=== PATIENT | male | born 1945 | race African-American/Black ===

== ENCOUNTER 2025-05-09 05:57 | Emergency (ER) | payer MEDICAID ==
--- OUTSIDE RECORDS SUMMARY | 2025-05-09 06:05 | XMS REPORT | Continuity of Care Document ---
Author Name Unknown Address [address] [facility] [address] [place] [address] [facility] Address [address] [facility] [address] [place] [address] Care Team Providers Care Graduate Rn Name Role Phone PCP, PATIENT DOES NOT HAVE A Primary Care Physic segundo Unavailable NASIM PEREZ Attending Clinician Unavailable BEATRIS LUNSFORD Attending Clinician Unavaila radha [facility] Attending Clinician Unavaila DANIELITO Shipley Attending Clinician Unav DANIELITO Farley Attending Clinician Unav MAYE Mendez Attending Clinician Unavailable [id number] Attending Clinician Unavailable Meena Pulliam Attending Clinician Unavaila radha [facility] Attending Clinician UnavailMIRZA Wolfe Attending Clinician Unavailable NT90 Attending Clinician Unavailable SHAAN TONG Attending Clinician Unavailable SHAAN TONG Attending Clinician Unavailable Pablo Blancas MD Attending Clinician [phone] Shaan Cueva Attending Clinician [phone] LAB90 Attending Clinician Unavailable MILI SCHULTZ Attending Clinician UnavailCATARINA Hyatt Attending Clinician Unav LISE Vargas Attending Clinician Unavailable Doctor Unassigned, [place] Attending Clinician Nelda Alvarez MD, Zeeshan KJerrodHJerrod Attending Clinician [phone] ZEESHAN ALVAREZHJerrod Attending Clinician UnavailELENA Gomez Attending Clinician Unavailab Elena Donnelly DO Attending Clinician [phone] SABRINA BAPTISTE Attending Clinician Unavailable Sabrina Daniels Attending Clinician [phone] ANUPAMA RUBIO Attending Clinician Unavailable Anupama Rubio NP Attending Clinician [phone] MITCHELL KWON Attending Clinician Unavail able Vaccine, [facility] Family Medicine Attending Clinician Unavailable Mitchell Kwon DO Attending Clinician [phone] ROBYN WOOD Attending Clinician Unavailable Robyn Wood MD Attending Clinician + [phone] , [facility] Surg Spec Procedure Attending Clinician Unavailable Nurse, [facility] Pob Immunization Attending Clinician Unavailable Antonia Zimmerman MD Attending Clinician + [phone] ANTONIA ZIMMERMAN Attending Clinician Unavaila ROGE Aguilar Attending Clinician Unavailable Roge Salas Attending Clinician [phone] KOSTA SIMS Attending Clinician Unavailable AneChristine Jackson Attending Clinician [phone] Lab, [facility] Fam Pob I Attending Clinician Unavailab CHRISTINE Carter Attending Clinician Unavailable Pob, [facility] Lab Main Attending Clinician UnavailJim Longoria MD Attending Clinician [phone] Visit, [facility] Nurse Attending Clinician Unavailable Phoenix Chambers MD Attending Clinician [phone] Guilherme HAYES Attending Clinician Unavailable Kushal Diaz MD Attending Clinician [phone] Danielito Henry Attending Clinician [phone] DANIELITO REHMAN Attending Clinician Unavailable [facility] Attending Clinician Unavailable KUSHAL DIAZ Attending Clinician Unavail able Jesse RN, Izzy Mayberry Attending Clinician Unavail able Steven France MD Attending Clinician [phone] STEVEN FRANCE Attending Clinician Unavailable [facility], [facility] Cardio Fac Attending Clinician Unavail able 1, [facility] Cardio Fac Room Attending Clinician UnaTrista Lomeli MD Attending Clinician [phone] TRISTA CAMP Attending Clinician Unavailable PHIL MA Attending Clinician Unavailable DANIELITO CONTI Admitting Clinician Unav SHAAN Reece Admitting Clinician Unavailable ZEESHAN ALVAREZ Admitting Clinician UnavailANUPAMA Renee Admitting Clinician Unavailable Guilherme HAYES Admitting Clinician Unavailable DANIELITO REHMAN Admitting Clinician Unavailable Steven France MD Admitting Clinician STEVEN FRANCE Admitting Clinician Unavailable PHIL MA Admitting Clinician Unavailable Payers Payer Name Policy Type Policy Number Effective Date Expirati on Date Source [facility] [id number] 00:00:00 [employer] [id number] 2024 00:00:00 Problems Condition Name Condition Details Condition Category Status Onset Date Resolution Date Last Treatment Date Treating Clinician Comments Source Calcified granuloma of lung (multi HCC) - seen on CXR 08/14/19 (Care Everywhere ) Calcified granuloma of lung (multi HCC) - seen on CXR 08/14/19 (Care Everywhere ) Disease Active 9-19 00:00: 00 Dena Paezold - Externa l Atheroscle rosis of aorta (CMS-HCC) - seen on CXR 02/13/22 Atheroscle rosis of aorta (CMS-HCC) - seen on CXR 02/13/22 Disease Active 9-18 00:00: 00 Dena Estrella - Externa l Statin intoleranc e Statin intoleranc e Disease Active 8-25 00:00: 00 Dena Estrella - Externa l Mixed hyperlipid emia Mixed hyperlipid emia Disease Active - 00:00: 00 Dena Estrella - Externa l Well adult exam Well adult exam Disease Active 12-17 00:00: 00 Dena Estrella - Externa l Pure hyperchole sterolemia Pure hyperchole sterolemia Disease Active - 00:00: 00 Dena Estrella - Externa l Hypertensi on Hypertensi on Disease Active 4- 00:00: 00 Dena Estrella - Externa l Palpitatio ns Palpitatio ns Disease Active 11-17 00:00: 00 Dena mayberry History of elevated PSA History of elevated PSA Disease Active 11-17 00:00: 00 Dena mayberry RLQ abdominal pain RLQ abdominal pain Disease Active 08-23 00:00: 00 [facility] Abnormal CT scan, pelvis Abnormal CT scan, pelvis Disease Active 08-23 00:00: 00 [facility] Atypical chest pain Atypical chest pain Disease Active 08-14 00:00: 00 [facility] PAC (premature atrial contractio n) PAC (premature atrial contractio n) Disease Active 08-14 00:00: 00 [facility] Increased prostate specific antigen (PSA) velocity Increased prostate specific antigen (PSA) velocity Disease Active 2018-07 00:00: 00 [facility] Abnormal liver function tests Abnormal liver function tests Disease Active 2018-07 00:00: 00 [facility] Renal dysfunctio n Renal dysfunctio n Disease Active 2018-07 00:00: 00 [facility] Hyperkalem ia Hyperkalem ia Disease Active 2018-07 00:00: 00 [facility] Granulocyt openia Granulocyt openia Disease Active 2018-07 00:00: 00 [facility] Liver cyst Liver cyst Disease Active 2018-07 00:00: 00 [facility] Renal cyst Renal cyst Disease Active 2018-07 00:00: 00 [facility] RUQ abdominal pain RUQ abdominal pain Disease Active 2018-07 00:00: 00 [facility] Irregular heart beat Irregular heart beat Disease Active 2018-07 00:00: 00 [facility] Elevated PSA Elevated PSA Disease Active 09-07 00:00: 00 [facility] Leukopenia , unspecifie d type Leukopenia , unspecifie d type Disease Active 09-07 00:00: 00 [facility] Essential hypertensi on Essential hypertensi on Disease Active [facility] Hyperlipid emia Hyperlipid emia Disease Active [facility] Anemia, unspecifie d type Anemia, unspecifie d type Disease Resolve d 09-07 00:00: 00 2019-06-11 00:00:00 2019-06-11 01:36:07 [facility] Malaise Malaise Disease Resolve d 09-07 00:00: 00 2019-06-11 00:00:00 2019-06-11 01:36:26 [facility] Benign prostatic hyperplasi a without lower urinary tract symptoms Benign prostatic hyperplasi a without lower urinary tract symptoms Disease Resolve d 2019-06-11 00:00:00 2019-06-11 01:36:16 [facility] Allergies, Adverse Reactions, Alerts Allergy Name Allergy Type Status Severity Reaction(s) Onset Date Inactive Date Treating Clinician Comments Source Losartan Propensi ty to adverse reaction s Active Other 10-01 00:00: 00 Dizziness , balance issues Dena Estrella - Externa l NO KNOWN ALLERGIE S Drug Class Active [facility] Social History Social Habit Start Date Stop Date Quantity Comments Source History of Occupation Dena Estrella - External History of tobacco use Cigarette Smoker Dena Brantley External Gender identity [facility] Sexual orientation [facility] Tobacco use and exposure 2024-04-17 00:00:00 2024-04-17 00:00:00 Smokeless tobacco non-user Dena Estrella - Vel Cigarettes smoked current (pack per day) - Reported 2024-04-17 00:00:00 2024-04-17 00:00:00 Dena Estrella - External Cigarette pack-years 2024-04-17 00:00:00 2024-04-17 00:00:00 Dena Estrella - External Alcohol intake 2023-03-18 00:00:00 2023-03-18 00:00:00 Ex-drinker (finding) Dena Estrella - External Education 2022-11-17 00:00:00 2022-11-17 00:00:00 13 Dena Estrella - External Alcohol Comment 2022-11-17 00:00:00 2022-11-17 00:00:00 Quit in the 1970s Dena Estrella - External Tobacco Comment 2022-11-16 00:00:00 2022-11-16 00:00:00 Stopped smoking 1977 Dena Estrella - External Sex 2022-06-30 11:33:56 2022-06-30 11:33:56 Male (finding) Dena Christinalos - External Exposure to SARS-CoV-2 (event) 2022-06-08 00:00:00 2022-06-18 09:42:00 Not sure [facility] History of Social function 2022-02-19 00:00:00 2022-02-19 00:00:00 [facility] Alcoholic beverage intake 2019-06-05 00:00:00 2019-06-05 00:00:00 0 /d [facility] Sex assigned at 1945 00:00:00 1945 00:00:00 Dena Estrella - External Smoking Status Start Date Stop Date Source Ex-smoker 2024-04-17 00:00:00 2024-04-17 00:00:00 Guilherme Estrella - External Medications Ordered Medication Name Filled Medication Name Start Date Stop Date Current Medication? Ordering Clinician Indication Dosage Frequency Signature (SIG) Comments Components Source Amlodipine Besylate (Norvasc) 10 MG oral Tablet 10-01 00:00: 00 Yes [id number] 10mg QD Take 1 tablet (10 mg total) by mouth daily. Dena mayberry Amlodipine Besylate (Norvasc) 5 MG oral Tablet 10-01 00:00: 00 10-01 00:00 :00 No [id number] 5mg QD Take 1 tablet (5 mg total) by mouth daily. Dena mayberry Losartan Potassium 25 MG oral Tablet 09-26 00:00: 00 10-01 00:00 :00 No [id number] 25mg QD Take 1 tablet (25 mg total) by mouth daily. Dena mayberry Clonidine HCl (CATAPRES) 0.1 MG oral Tablet 09-20 11:03: 09-20 00:00 :00 No TAKE 1 TABLET BY MOUTH TWICE DAILY NEEDED FOR BLOOD PREESSURE GREATER THAN 160/100 Dena mayberry Losartan Potassium 25 MG oral Tablet 09-20 00:00: 00 Yes [id number] 25mg QD Take 1 tablet (25 mg total) by mouth daily. Dena Adames Natural Products (Beta-Sitos terol Plant Sterols) oral Capsule 08-10 16:13: 08-10 00:00 :00 No Take by mouth. Dena mayberry Aspirin (Aspirin 81) 81 MG oral Tablet Delayed Response 08-10 16:13: 08-10 00:00 :00 No [id number] 81mg QD Take 1 tablet (81 mg total) by mouth daily. Dena mayberry Losartan Potassium 25 MG oral Tablet 08-10 00:00: 00 09-20 00:00 :00 No [id number] 25mg QD Take 1 tablet (25 mg total) by mouth daily. Dena mayberry hydralAZINE (APRESOLINE ) injection 10 mg 08-07 21:00: 00 08-07 23:00 :00 No 10mg 10 mg, Slow IV Push, ONCE, 1 dose, On Tue08/07/24 at 1500, KHOI [facility] cloNIDine 0.1 mg tablet 08-07 00:00: 00 08-07 00:00 :00 No [id number] .1mg Take 1 tablet by mouth 2 (two) times daily as needed for Other (blood pressure > 160/100). [facility] Aspirin (Aspirin 81) 81 MG oral Tablet Delayed Response 04-17 09:03: 58 Yes [id number] 81mg QD Take 1 tablet (81 mg total) by mouth daily. Dena Adames Natural Products (Beta-Sitos terol Plant Sterols) oral Capsule 04-17 08:11: 46 Yes Take by mouth. Dena mayberry Amlodipine Besylate 10 MG oral Tablet 2024-0 9-24 00:00: 00 09-20 00:00 :00 No [id number] 10mg QD Take 1 tablet (10 mg total) by mouth daily. Dena mayberry Amlodipine Besylate 10 MG oral Tablet 7-13 00:00: 00 04-17 00:00 :00 No [id number] 10mg QD Take 1 tablet by mouth once daily Dena mayberry Misc Natural Products (Beta-Sitos terol Plant Sterols) oral Capsule 03-18 07:52: 44 Yes Take by mouth. Dena mayberry [place] 1000 MG oral Capsule 03-18 07:52: 44 03-18 00:00 :00 No 1{capsu le} Take 1 capsule by mouth daily Dena mayberry Pitavastati n Calcium 1 MG oral Tablet 03-18 00:00: 00 04-17 00:00 :00 No [id number] 1{tbl} QD Take 1 tablet by mouth nightly. Dena mayberry Atorvastati n Calcium (Lipitor) 10 MG oral Tablet 12-17 00:00: 00 03-18 00:00 :00 No [id number] 10mg Take 1 tablet (10 mg total) by mouth daily Dena mayberry [place] 1000 MG oral Capsule 11-17 08:23: 20 Yes 1{capsu le} Take 1 capsule by mouth daily Dena mayberry Amlodipine Besylate 10 MG oral Tablet - 00:00: 00 Yes [id number] 10mg Take 1 tablet (10 mg total) by mouth daily Dena mayberry Amlodipine Besylate (NORVASC) 5 MG oral Tablet 2-20 00:00: 00 11-17 00:00 :00 No 5mg Take 1 tablet (5 mg total) by mouth 2 times daily Dena mayberry AMLODIPINE 5 mg tablet 5-16 00:00: 00 09-13 00:00 :00 No [id number] TAKE 1 TABLET BY MOUTH TWICE DAILY [facility] GREEN TEA EXTRACT ORAL 04-17 10:00: 36 Yes Take by mouth daily. [facility] MEN'S MULTI-VITAM IN ORAL 04-17 09:49: 47 Yes 1{capsu le} Take 1 capsule by mouth 2 (two) times daily. [facility] Immunizations Ordered Immunization Name Filled Immunization Name Date Status Comments Source SARS-COV-2 COVID-19 PFIZER RENA-SUCROSE VACCINE (GOODEN TOP) 2022-01-28 00:00:00 Completed [facility] SARS-COV-2 COVID-19 PFIZER RENA-SUCROSE VACCINE (GOODEN TOP) 2022-01-28 00:00:00 Completed [facility] SARS-COV-2 COVID-19 PFIZER RENA-SUCROSE VACCINE (GOODEN TOP) 2022-01-28 00:00:00 Completed [facility] SARS-COV-2 COVID-19 PFIZER RENA-SUCROSE VACCINE (GOODEN TOP) 2022-01-28 00:00:00 Completed [facility] SARS-COV-2 COVID-19 PFIZER RENA-SUCROSE VACCINE (GOODEN TOP) 2022-01-28 00:00:00 Completed [facility] SARS-COV-2 COVID-19 PFIZER RENA-SUCROSE VACCINE (GOODEN TOP) 2022-01-28 00:00:00 Completed [facility] SARS-COV-2 COVID-19 PFIZER RENA-SUCROSE VACCINE (GOODEN TOP) 2022-01-28 00:00:00 Completed [facility] SARS-COV-2 COVID-19 PFIZER RENA-SUCROSE VACCINE (GOODEN TOP) 2022-01-28 00:00:00 Completed [facility] SARS-COV-2 COVID-19 PFIZER RENA-SUCROSE VACCINE (GOODEN TOP) 2022-01-28 00:00:00 Completed [facility] SARS-COV-2 COVID-19 PFIZER RENA-SUCROSE VACCINE (GOODEN TOP) 2022-01-28 00:00:00 Completed SARS-COV-2 COVID-19 PFIZER VACCINE 2021-05-13 00:00:00 Completed [facility] SARS-COV-2 COVID-19 PFIZER VACCINE 2021-05-13 00:00:00 Completed [facility] SARS-COV-2 COVID-19 PFIZER VACCINE 2021-05-13 00:00:00 Completed [facility] SARS-COV-2 COVID-19 PFIZER VACCINE 2021-05-13 00:00:00 Completed [facility] SARS-COV-2 COVID-19 PFIZER VACCINE 2021-05-13 00:00:00 Completed [facility] SARS-COV-2 COVID-19 PFIZER VACCINE 2021-05-13 00:00:00 Completed [facility] SARS-COV-2 COVID-19 PFIZER VACCINE 2021-05-13 00:00:00 Completed [facility] SARS-COV-2 COVID-19 PFIZER VACCINE 2021-05-13 00:00:00 Completed [facility] SARS-COV-2 COVID-19 PFIZER VACCINE 2021-05-13 00:00:00 Completed [facility] SARS-COV-2 COVID-19 PFIZER VACCINE 2021-05-13 00:00:00 Completed [facility] SARS-COV-2 COVID-19 PFIZER VACCINE 2020-09-03 00:00:00 Completed [facility] SARS-COV-2 COVID-19 PFIZER VACCINE 2020-09-03 00:00:00 Completed [facility] SARS-COV-2 COVID-19 PFIZER VACCINE 2020-09-03 00:00:00 Completed [facility] SARS-COV-2 COVID-19 PFIZER VACCINE 2020-09-03 00:00:00 Completed [facility] SARS-COV-2 COVID-19 PFIZER VACCINE 2020-09-03 00:00:00 Completed [facility] SARS-COV-2 COVID-19 PFIZER VACCINE 2020-09-03 00:00:00 Completed [facility] SARS-COV-2 COVID-19 PFIZER VACCINE 2020-09-03 00:00:00 Completed [facility] SARS-COV-2 COVID-19 PFIZER VACCINE 2020-09-03 00:00:00 Completed [facility] SARS-COV-2 COVID-19 PFIZER VACCINE 2020-09-03 00:00:00 Completed [facility] SARS-COV-2 COVID-19 PFIZER VACCINE 2020-09-03 00:00:00 Completed SARS-COV-2 COVID-19 PFIZER VACCINE 2020-08-13 00:00:00 Completed [facility] SARS-COV-2 COVID-19 PFIZER VACCINE 2020-08-13 00:00:00 Completed [facility] SARS-COV-2 COVID-19 PFIZER VACCINE 2020-08-13 00:00:00 Completed [facility] SARS-COV-2 COVID-19 PFIZER VACCINE 2020-08-13 00:00:00 Completed [facility] SARS-COV-2 COVID-19 PFIZER VACCINE 2020-08-13 00:00:00 Completed [facility] SARS-COV-2 COVID-19 PFIZER VACCINE 2020-08-13 00:00:00 Completed [facility] SARS-COV-2 COVID-19 PFIZER VACCINE 2020-08-13 00:00:00 Completed [facility] SARS-COV-2 COVID-19 PFIZER VACCINE 2020-08-13 00:00:00 Completed [facility] SARS-COV-2 COVID-19 PFIZER VACCINE 2020-08-13 00:00:00 Completed [facility] SARS-COV-2 COVID-19 PFIZER VACCINE 2020-08-13 00:00:00 Completed [facility] Influenza Virus Vaccine, High Dose, Age 65 And Up 2020-05-25 00:00:00 Completed Dena Seybold - External Influenza Virus Vaccine, High Dose, Age 65 And Up 2020-05-25 00:00:00 Completed Dena Seybold - External Influenza Virus Vaccine, High Dose, Age 65 And Up 2020-05-25 00:00:00 Completed Dena Seybold - External Influenza High Dose 2020-05-25 00:00:00 Completed [facility] Influenza High Dose 2020-05-25 00:00:00 Completed [facility] Influenza High Dose 2020-05-25 00:00:00 Completed [facility] Influenza High Dose 2020-05-25 00:00:00 Completed [facility] Influenza High Dose 2020-05-25 00:00:00 Completed [facility] Influenza High Dose 2020-05-25 00:00:00 Completed [facility] Influenza High Dose 2020-05-25 00:00:00 Completed [facility] Influenza High Dose 2020-05-25 00:00:00 Completed [facility] Influenza High Dose 2020-05-25 00:00:00 Completed [facility] Influenza, High-Dose, Trivalent, PF (FLUZONE) 2020-05-25 00:00:00 Completed [facility] Influenza Virus Vaccine, High Dose, Age 65 And Up 2019-04-25 00:00:00 Completed Dena Seybold - External Influenza Virus Vaccine, High Dose, Age 65 And Up 2019-04-25 00:00:00 Completed Dena Seybold - External Influenza Virus Vaccine, High Dose, Age 65 And Up 2019-04-25 00:00:00 Completed Dena Christinaybold - External Influenza High Dose 2019-04-25 00:00:00 Completed [facility] Influenza High Dose 2019-04-25 00:00:00 Completed [facility] Influenza High Dose 2019-04-25 00:00:00 Completed [facility] Influenza High Dose 2019-04-25 00:00:00 Completed [facility] Influenza High Dose 2019-04-25 00:00:00 Completed [facility] Influenza High Dose 2019-04-25 00:00:00 Completed [facility] Influenza High Dose 2019-04-25 00:00:00 Completed [facility] Influenza High Dose 2019-04-25 00:00:00 Completed [facility] Influenza High Dose 2019-04-25 00:00:00 Completed [facility] Influenza, High-Dose, Trivalent, PF (FLUZONE) 2019-04-25 00:00:00 Completed [facility] Influenza Virus Vaccine, High Dose, Age 65 And Up 2015-04-30 00:00:00 Completed Dena Seybold - External Influenza Virus Vaccine, High Dose, Age 65 And Up 2015-04-30 00:00:00 Completed Dena Seybold - External Influenza Virus Vaccine, High Dose, Age 65 And Up 2015-04-30 00:00:00 Completed Dena Seybold - External Influenza Virus Vaccine, High Dose, Age 65 And Up 2014-05-24 00:00:00 Completed Dena Seybold - External Influenza Virus Vaccine, High Dose, Age 65 And Up 2014-05-24 00:00:00 Completed Dena Seybold - External Influenza Virus Vaccine, High Dose, Age 65 And Up 2014-05-24 00:00:00 Completed Dena Seybold - External Influenza Virus Vaccine, High Dose, Age 65 And Up 2013-06-01 00:00:00 Completed Dena Seybold - External Td(adult) unspecified formulation 2013-06-01 00:00:00 Completed Dena Seybold - External Influenza Virus Vaccine, High Dose, Age 65 And Up 2013-06-01 00:00:00 Completed Dena Seybold - External Td(adult) unspecified formulation 2013-06-01 00:00:00 Completed Dena Seybold - External Influenza Virus Vaccine, High Dose, Age 65 And Up 2013-06-01 00:00:00 Completed Dena Seybold - External Td(adult) unspecified formulation 2013-06-01 00:00:00 Completed Dena Seybold - External Shingles SQ (Zostavax) 2012-12-01 00:00:00 Completed Dena Seybold - External Shingles SQ (Zostavax) 2012-12-01 00:00:00 Completed Dena Seybold - External Shingles SQ (Zostavax) 2012-12-01 00:00:00 Completed Dena Seybold - External Influenza Virus Vaccine, Unspecified Formulation 2012-05-10 00:00:00 Completed Dena Seybold - External Influenza Virus Vaccine, Unspecified Formulation 2012-05-10 00:00:00 Completed Dena Seybold - External Influenza Virus Vaccine, Unspecified Formulation 2012-05-10 00:00:00 Completed Dena Seybold - External Influenza Virus Vaccine, Unspecified Formulation 2011-05-27 00:00:00 Completed Dena Seybold - External Influenza Virus Vaccine, Unspecified Formulation 2011-05-27 00:00:00 Completed Dena Seybold - External Influenza Virus Vaccine, Unspecified Formulation 2011-05-27 00:00:00 Completed Dena Seybold - External Influenza Virus Vaccine, Unspecified Formulation 2010-06-30 00:00:00 Completed Dena Seybold - External Influenza Virus Vaccine, Unspecified Formulation 2010-06-30 00:00:00 Completed Dena Seybold - External Influenza Virus Vaccine, Unspecified Formulation 2010-06-30 00:00:00 Completed Dena Seybold - External [id number] 2009-06-26 00:00:00 Completed Dnea Seybold - External [id number] 2009-06-26 00:00:00 Completed Dena Seybold - External [id number] 2009-06-26 00:00:00 Completed Dena Seybold - External Influenza Virus Vaccine, Unspecified Formulation 2009-05-27 00:00:00 Completed Dena Seybold - External Influenza Virus Vaccine, Unspecified Formulation 2009-05-27 00:00:00 Completed Dena Seybold - External Influenza Virus Vaccine, Unspecified Formulation 2009-05-27 00:00:00 Completed Dena Seybold - External pneumococcal, unspecified formulation 2009-02-11 00:00:00 Completed Dena Seybold - External pneumococcal, unspecified formulation 2009-02-11 00:00:00 Completed Dena Seybold - External pneumococcal, unspecified formulation 2009-02-11 00:00:00 Completed Dena Seybold - External Influenza Virus Vaccine, Unspecified Formulation 2008-07-16 00:00:00 Completed Dena Seybold - External Influenza Virus Vaccine, Unspecified Formulation 2008-07-16 00:00:00 Completed Dena Seybold - External Influenza Virus Vaccine, Unspecified Formulation 2008-07-16 00:00:00 Completed Dena Seybold - External Influenza Virus Vaccine, Unspecified Formulation 2007-05-15 00:00:00 Completed Dena Seybold - External Influenza Virus Vaccine, Unspecified Formulation 2007-05-15 00:00:00 Completed Dena Seybold - External Influenza Virus Vaccine, Unspecified Formulation 2007-05-15 00:00:00 Completed Dena Seybold - External Influenza Virus Vaccine, Unspecified Formulation 2005-06-08 00:00:00 Completed Dena Seybold - External Influenza Virus Vaccine, Unspecified Formulation 2005-06-08 00:00:00 Completed Dena Seybold - External Influenza Virus Vaccine, Unspecified Formulation 2005-06-08 00:00:00 Completed Dena Seybold - External Influenza Virus Vaccine, Unspecified Formulation 2004-09-04 00:00:00 Completed Dena Seybold - External Influenza Virus Vaccine, Unspecified Formulation 2004-09-04 00:00:00 Completed Dena Seybold - External Influenza Virus Vaccine, Unspecified Formulation 2004-09-04 00:00:00 Completed Dena Seybold - External Influenza Virus Vaccine, Unspecified Formulation 2003-05-28 00:00:00 Completed Dena Seybold - External Influenza Virus Vaccine, Unspecified Formulation 2003-05-28 00:00:00 Completed Dena Seybold - External Influenza Virus Vaccine, Unspecified Formulation 2003-05-28 00:00:00 Completed Dena Seybold - External Influenza Virus Vaccine, Unspecified Formulation 2002-04-17 00:00:00 Completed Dena Seybold - External Influenza Virus Vaccine, Unspecified Formulation 2002-04-17 00:00:00 Completed Dena Seybold - External Influenza Virus Vaccine, Unspecified Formulation 2002-04-17 00:00:00 Completed Dena Seybold - External Influenza Virus Vaccine, Unspecified Formulation 2001-04-24 00:00:00 Completed Dena Seybold - External Influenza Virus Vaccine, Unspecified Formulation 2001-04-24 00:00:00 Completed Dena Seybold - External Influenza Virus Vaccine, Unspecified Formulation 2001-04-24 00:00:00 Completed Dena Seybold - External Influenza Virus Vaccine, Whole Virus 1999-07-25 00:00:00 Completed Dena Seybold - External Influenza Virus Vaccine, Whole Virus 1999-07-25 00:00:00 Completed Dena Seybold - External Influenza Virus Vaccine, Whole Virus 1999-07-25 00:00:00 Completed Dena Seybold - External Td(adult) unspecified formulation 1998-12-03 00:00:00 Completed Dena Seybold - External Td(adult) unspecified formulation 1998-12-03 00:00:00 Completed Dena Seybold - External Td(adult) unspecified formulation 1998-12-03 00:00:00 Completed Dena Seybold - External Influenza Virus Vaccine, Unspecified Formulation Unknown Completed Dena Seybold - External Influenza Virus Vaccine, High Dose, Age 65 And Up Unknown Completed Dena Seybold - External Influenza Virus Vaccine, Whole Virus Unknown Completed Dena Seybold - External [id number] Unknown Completed Dena Christinay bold - External pneumococcal, unspecified formulation Unknown Completed Dena Christinaybold - External Shingles SQ (Zostavax) Unknown Completed Dena Seybold - External Td(adult) unspecified formulation Unknown Completed Dena Seybold - External FLUAD TRIVALENT PF Influenza Vaccine, Adjuvanted, Preserve Unknown Completed Dena Seybold - External Influenza Virus Vaccine, Unspecified Formulation Unknown Completed Dena Seybold - External Influenza Virus Vaccine, High Dose, Age 65 And Up Unknown Completed Dena Seybold - External Influenza Virus Vaccine, Whole Virus Unknown Completed Dena Seybold - External [id number] Unknown Completed Dena Sey bold - External pneumococcal, unspecified formulation Unknown Completed Dena Seybold - External Shingles SQ (Zostavax) Unknown Completed Dena Seybold - External Td(adult) unspecified formulation Unknown Completed Dena Seybold - External FLUAD TRIVALENT PF Influenza Vaccine, Adjuvanted, Preserve Unknown Completed Dena Seybold - External Influenza Virus Vaccine, Unspecified Formulation Unknown Completed Dena Seybold - External Influenza Virus Vaccine, High Dose, Age 65 And Up Unknown Completed Dena Seybold - External Influenza Virus Vaccine, Whole Virus Unknown Completed Dena Seybold - External [id number] Unknown Completed Dena Sey bold - External pneumococcal, unspecified formulation Unknown Completed Dena Seybold - External Shingles SQ (Zostavax) Unknown Completed Dena Seybold - External Td(adult) unspecified formulation Unknown Completed Dena Seybold - External FLUAD TRIVALENT PF Influenza Vaccine, Adjuvanted, Preserve Unknown Completed Dena Seybold - External Influenza Virus Vaccine, Unspecified Formulation Unknown Completed Dena Seybold - External Influenza Virus Vaccine, High Dose, Age 65 And Up Unknown Completed Dena Seybold - External Influenza Virus Vaccine, Whole Virus Unknown Completed Dena Seybold - External [id number] Unknown Completed Dena Sey bold - External pneumococcal, unspecified formulation Unknown Completed Dena Seybold - External Shingles SQ (Zostavax) Unknown Completed Dena Seybold - External Td(adult) unspecified formulation Unknown Completed Dena Seybold - External FLUAD TRIVALENT PF Influenza Vaccine, Adjuvanted, Preserve Unknown Completed Dena Seybold - External Influenza Virus Vaccine, Unspecified Formulation Unknown Completed Dena Seybold - External Influenza Virus Vaccine, High Dose, Age 65 And Up Unknown Completed Dena Seybold - External Influenza Virus Vaccine, Whole Virus Unknown Completed Dena Seybold - External [id number] Unknown Completed Dena Sey bold - External pneumococcal, unspecified formulation Unknown Completed Dena Seybold - External Shingles SQ (Zostavax) Unknown Completed Dena Christinaybold - External Td(adult) unspecified formulation Unknown Completed Dena Christinaybold - External FLUAD TRIVALENT PF Influenza Vaccine, Adjuvanted, Preserve Unknown Completed Dena Paezold - External Influenza High Dose Unknown Completed [facility] SARS-COV-2 COVID-19 PFIZER VACCINE Unknown Completed [facility] SARS-COV-2 COVID-19 PFIZER RENA-SUCROSE VACCINE (GOODEN TOP) Unknown Completed [facility] Vital Signs Vital Name Observation Time Observation Value Comments S ource Systolic blood pressure 2024-11-16 13:49:00 132 mm[Hg] Dena Seybo ld - External Diastolic blood pressure 2024-11-16 13:49:00 64 mm[Hg] Dena Seybo ld - External Heart rate 2024-11-16 13:49:00 84 /min Kelse y Seybold - External Body temperature 2024-11-16 13:49:00 36 Philomena Dena Seybold - External Respiratory rate 2024-11-16 13:49:00 16 /min Dena Seybold - External Body height 2024-11-16 13:49:00 182.9 cm Ese ey Seybold - External Body weight 2024-11-16 13:49:00 78.563 kg Ese ey Seybold - External BMI 2024-11-16 13:49:00 23.49 kg/m2 Ese ey Seybold - External Oxygen saturation in Arterial blood by Pulse oximetry 2024-11-16 13:49:00 97 /min Dena ybo ld - External Systolic blood pressure 2024-10-01 13:17:00 136 mm[Hg] Dena Seybo ld - External Diastolic blood pressure 2024-10-01 13:17:00 72 mm[Hg] Dena Seybo ld - External Heart rate 2024-10-01 13:17:00 71 /min Kelse y Seybold - External Body temperature 2024-10-01 13:17:00 36.39 Philomena Dena Seybold - External Respiratory rate 2024-10-01 13:17:00 16 /min Dena Seybold - External Body height 2024-10-01 13:17:00 182.9 cm Ese ey Seybold - External Body weight 2024-10-01 13:17:00 77.111 kg Ese ey Seybold - External BMI 2024-10-01 13:17:00 23.06 kg/m2 Ese ey Seybold - External Oxygen saturation in Arterial blood by Pulse oximetry 2024-10-01 13:17:00 97 /min Dena Seybo ld - External Systolic blood pressure 2024-09-20 16:51:00 138 mm[Hg] Dena Seybo ld - External Diastolic blood pressure 2024-09-20 16:51:00 78 mm[Hg] Dena Seybo ld - External Heart rate 2024-09-20 16:51:00 76 /min Kelse y Seybold - External Body temperature 2024-09-20 16:51:00 36.11 Philomena Dena Seybold - External Respiratory rate 2024-09-20 16:51:00 18 /min Dena Seybold - External Body height 2024-09-20 16:51:00 182.9 cm Ese ey Seybold - External Body weight 2024-09-20 16:51:00 77.474 kg Ese ey Seybold - External BMI 2024-09-20 16:51:00 23.16 kg/m2 Ese ey Seybold - External Oxygen saturation in Arterial blood by Pulse oximetry 2024-09-20 16:51:00 100 /min Dena Seybo ld - External Systolic blood pressure 2024-08-10 21:55:00 134 mm[Hg] Dena Seybo ld - External Diastolic blood pressure 2024-08-10 21:55:00 56 mm[Hg] Dena Seybo ld - External Heart rate 2024-08-10 21:55:00 91 /min Kelse y Seybold - External Body temperature 2024-08-10 21:55:00 36.11 Philomena Dena Seybold - External Body height 2024-08-10 21:55:00 182.9 cm Ese ey Seybold - External Body weight 2024-08-10 21:55:00 79.833 kg Ese ey Seybold - External BMI 2024-08-10 21:55:00 23.87 kg/m2 Ese ey Seybold - External Oxygen saturation in Arterial blood by Pulse oximetry 2024-08-10 21:55:00 98 /min Dena Seybo ld - External Systolic blood pressure 2024-08-07 23:00:00 148 mm[Hg] [facility] Diastolic blood pressure 2024-08-07 23:00:00 74 mm[Hg] [facility] Heart rate 2024-08-07 23:00:00 87 /min [facility] Respiratory rate 2024-08-07 23:00:00 16 /min [facility] Oxygen saturation in Arterial blood by Pulse oximetry 2024-08-07 23:00:00 97 /min [facility] Body temperature 2024-08-07 20:51:00 36.28 Philomena [facility] Body height 2024-08-07 20:51:00 182.9 cm [facility] Body weight 2024-08-07 20:51:00 80.74 kg [facility] BMI 2024-08-07 20:51:00 24.14 kg/m2 [facility] Systolic blood pressure 2024-04-17 13:11:00 128 mm[Hg] Dena Seybo ld - External Diastolic blood pressure 2024-04-17 13:11:00 67 mm[Hg] Dena Seybo ld - External Heart rate 2024-04-17 13:11:00 83 /min Kelse y Seybold - External Body temperature 2024-04-17 13:11:00 36.5 Philomena Dena Seybold - External Respiratory rate 2024-04-17 13:11:00 18 /min Dena Seybold - External Body height 2024-04-17 13:11:00 182.9 cm Ese ey Seybold - External Body weight 2024-04-17 13:11:00 81.194 kg Ese ey Seybold - External BMI 2024-04-17 13:11:00 24.28 kg/m2 Ese ey Seybold - External Oxygen saturation in Arterial blood by Pulse oximetry 2024-04-17 13:11:00 100 /min Dena Seybo ld - External Systolic blood pressure 2023-03-18 12:48:00 140 mm[Hg] Dena Seybo ld - External Diastolic blood pressure 2023-03-18 12:48:00 70 mm[Hg] Dena Seybo ld - External Heart rate 2023-03-18 12:48:00 69 /min Kelse y Seybold - External Body temperature 2023-03-18 12:48:00 36 Philomena Dena Seybold - External Respiratory rate 2023-03-18 12:48:00 14 /min Dena Seybold - External Body height 2023-03-18 12:48:00 182.9 cm Ese ey Seybold - External Body weight 2023-03-18 12:48:00 86.183 kg Ese ey Seybold - External BMI 2023-03-18 12:48:00 25.77 kg/m2 Ese ey Seybold - External Respiratory rate 2022-12-17 14:45:00 19 /min Dena Seybold - External Body height 2022-12-17 14:45:00 182.9 cm Ese ey Seybold - External Body weight 2022-12-17 14:45:00 85.276 kg Ese ey Seybold - External BMI 2022-12-17 14:45:00 25.50 kg/m2 Ese ey Seybold - External Oxygen saturation in Arterial blood by Pulse oximetry 2022-12-17 14:45:00 97 /min Dena Paezo ld - External Systolic blood pressure 2022-12-17 14:45:00 129 mm[Hg] Dena Christinaybo ld - External Diastolic blood pressure 2022-12-17 14:45:00 67 mm[Hg] Dena Seybo ld - External Body temperature 2022-12-17 14:45:00 36.61 Philomena Dena Seybold - External Systolic blood pressure 2022-11-17 13:21:00 136 mm[Hg] Dena Seybo ld - External Diastolic blood pressure 2022-11-17 13:21:00 69 mm[Hg] Dena Seybo ld - External Heart rate 2022-11-17 13:21:00 76 /min Kelse y Seybold - External Body temperature 2022-11-17 13:21:00 36.56 Philomena Dena Seybold - External Respiratory rate 2022-11-17 13:21:00 15 /min Dena Estrella - External Body height 2022-11-17 13:21:00 182.9 cm Ese Estrella - External Body weight 2022-11-17 13:21:00 82.101 kg Ese mattson Seybold - External BMI 2022-11-17 13:21:00 24.55 kg/m2 Ese twila Christinaybold - External Oxygen saturation in Arterial blood by Pulse oximetry 2022-11-17 13:21:00 95 /min Dena Rhodes ld - External Systolic blood pressure 2022-06-18 15:42:00 172 mm[Hg] [facility] Diastolic blood pressure 2022-06-18 15:42:00 90 mm[Hg] [facility] Heart rate 2022-06-18 15:42:00 93 /min [facility] Body temperature 2022-06-18 15:42:00 36.5 Philomena [facility] Respiratory rate 2022-06-18 15:42:00 18 /min [facility] Body height 2022-06-18 15:42:00 182.9 cm [facility] Body weight 2022-06-18 15:42:00 77.111 kg [facility] BMI 2022-06-18 15:42:00 23.06 kg/m2 [facility] Oxygen saturation in Arterial blood by Pulse oximetry 2022-06-18 15:42:00 97 /min [facility] Systolic blood pressure 2022-03-08 13:51:00 138 mm[Hg] [facility] Diastolic blood pressure 2022-03-08 13:51:00 72 mm[Hg] [facility] Heart rate 2022-03-08 13:51:00 72 /min [facility] Respiratory rate 2022-03-08 13:51:00 17 /min [facility] Oxygen saturation in Arterial blood by Pulse oximetry 2022-03-08 13:51:00 95 /min [facility] Body temperature 2022-03-08 13:50:00 36.5 Philomena [facility] Body height 2022-03-08 13:50:00 182.9 cm [facility] Body weight 2022-03-08 13:50:00 77.293 kg [facility] BMI 2022-03-08 13:50:00 23.11 kg/m2 [facility] Procedures Procedure Date / Time Performed Performing Clinician Source EKG-12 LEAD 2024-08-07 23:48:51 Shaan Tong [facility] URINALYSIS 2024-08-07 21:31:00 Shaan Tong [facility] TROPONIN I 2024-08-07 21:26:00 Shaan Tong [facility] COMP. METABOLIC PANEL (30455) 2024-08-07 21:26:00 Shaan Tong [facility] CBC WITH DIFF 2024-08-07 21:26:00 Shaan Tong [facility] N-TERMINAL PRO-BNP 2024-08-07 21:26:00 Shaan Tong [facility] XR CHEST 1 VW 2024-08-07 21:14:00 Shaan Tong [facility] QUANTAFLO 2024-04-17 09:00:23 Nasim Perez - External AUTHORIZATION FOR RELEASE OF PHI 2022-12-01 05:01:00 Doctor Unassigned, [place] [facility] AUTHORIZATION FOR RELEASE OF PHI 2022-11-17 05:01:00 Doctor Unassigned, [place] [facility] RAPID INFLUENZA A/B 2022-06-18 15:46:00 Danna Walker ra [facility] COVID-19 (ID NOW RAPID TESTING) 2022-06-18 15:46:00 Elena Walker [facility] CONSENT/REFUSAL FOR DIAGNOSIS AND TREATMENT 2022-06-18 15:36:57 Doctor Unassigned, [place] [facility] INSURANCE CORRESPONDENCE 2022-03-19 05:01:00 Doc tor Unassigned, [place] [facility] Encounters Start Date/Time End Date/Time Encounter Type Admission Type Attending Clinicians Care Facility Care Department Encounter ID Source 2025-05-22 08:00:00 2025-05-22 08:00:00 Outpatient PREZAS, NASIM COSTELLO [facility] [id number] [facility]25-[facility]-01 00:00:00 2025-05-01 00:00:00 Outpatient PREZAS, NASIM COSTELLO DENA [id number] [facility] 2025-04-29 00:00:00 2025-04-29 00:00:00 Outpatient BEATRIS LUNSFORD DENA [id number] [facility] 2024-12-20 08:30:00 2024-12-20 08:30:00 Outpatient PREZAS, NASIM COSTELLO DENA [id number] [facility] 2024-11-16 09:00:00 2024-11-16 09:00:00 Outpatient PREZAS, NASIM DENA COSTELLO [id number] [facility] 2024-11-12 09:00:00 2024-11-12 09:00:00 Outpatient PREZAS, NASIM COSTELLO DENA [id number] [facility] 2024-10-10 00:00:00 2024-10-10 00:00:00 Outpatient PREZAS, NASIM COSTELLO DENA [id number] [facility] 2024-10-08 08:15:00 2024-10-08 08:15:00 Outpatient DOMINGUEZAYDEE DENA COSTELLO [id number] [facility] 2024-10-01 08:15:00 2024-10-01 08:15:00 Outpatient PREZAS, NASIM COSTELLO DENA [id number] [facility] 2024-09-28 04:08:00 2024-09-28 06:39:00 Emergency X AUBRIDGETERTRIPP , DANIELITO MCGRATH [facility] ERT [id number] [facility] 2024-09-28 00:00:00 2024-09-28 00:00:00 Outpatient PREZAS, NASIM [id number] [facility]24-[facility]-26 00:00:00 2024-09-26 00:00:00 Outpatient LE, MAYE COSTELLO [id number] [facility] 2024-09-25 00:00:00 2024-09-25 00:00:00 Outpatient NASIM PEREZ DENA [id number] [facility] 2024-09-20 11:45:00 2024-09-20 11:45:00 Outpatient VHM525 DENA COSTELLO [id number] [facility] Estrella 2024-09-20 11:00:00 2024-09-20 11:00:00 Outpatient NAS[facility] PEREZ [id number] [facility] 2019-06-05 00:00:00 2024-09-08 03:06:41 Orders Only Keesha Espinal, Meena Mcgowan [facility] .2.840.114 350.1.13.10 4.2.7.2.686 [id number] [facility] 2024-08-17 15:30:00 2024-08-17 15:30:00 Outpatient AYDEE MIX DENA COSTELLO [id number] [facility] 2024-08-10 16:00:00 2024-08-10 16:00:00 Outpatient MIRZA ISLAS DENA COSTELLO [id number] [facility] 2024-08-10 11:15:00 2024-08-10 11:15:00 Outpatient NT90 DENA COSTELLO [id number] [facility] 2024-08-07 14:55:00 2024-08-07 17:35:00 Emergency SHAAN RAHMAN ERICCA [facility] ERT [id number] [facility] 2024-08-07 14:55:00 2024-08-07 17:35:00 Emergency Pablo Blancas Ericca D [facility] ..840.114 350.1.13.10 4.2.7.2.686 [id number] [facility] 2024-07-30 00:00:00 2024-07-30 00:00:00 Outpatient NASIM PEREZ DENA COSTELLO [id number] [facility] Seybold 2024-04-18 00:00:00 2024-04-18 00:00:00 Outpatient PREZAS, NASIM COSTELLO DENA [id number] [facility] 2024-04-17 09:20:00 2024-04-17 09:20:00 Outpatient LAB90 DENA DENA [id number] Dena Seybold 2024-04-17 08:15:00 2024-04-17 08:15:00 Outpatient PREZAS, NASIM COSTELLO DENA [id number] [facility] Sey[facility] 2024-02-04 00:00:00 2024-02-04 00:00:00 Outpatient PREZAS, NASIM COSTELLO [facility] [id number] [facility] 2023-[facility]-07 00:00:00 2023-11-07 00:00:00 Outpatient PREZAS, NASIM DENA COSTELLO [id number] [facility] Sey[facility] 2023-09-20 09:30:00 2023-09-20 09:30:00 Outpatient MARION MILI DENA DENA [id number] [facility]ena Seybold 2023-08-28 00:00:00 2023-08-28 00:00:00 Outpatient PREZAS, NASIM DENA COSTELLO [id number] [facility] 2023-06-20 08:00:00 2023-06-20 08:00:00 Outpatient PREZAS, NASIM DENA COSTELLO [id number] [facility] Sey[facility] 2023-06-15 00:00:00 2023-06-15 00:00:00 Outpatient PREZAS, NASIM JAYSERGIO COSTELLO [id number] [facility] Sey[facility] 2023-03-18 08:00:00 2023-03-18 08:00:00 Outpatient PREZAS, NASIM DENA COSTELLO [id number] [facility] Sey[facility] 2023-03-17 08:05:00 2023-03-17 08:05:00 Outpatient LAB90 DENA COSTELLO [id number] [facility] Sey[facility] 2023-02-16 00:00:00 2023-02-16 00:00:00 Outpatient PREZAS, NASIM DENA COSTELLO [id number] [facility] Sey[facility] 2023-01-17 00:00:00 2023-01-17 00:00:00 Outpatient NASIM PEREZ DENA [id number] [facility] 2023-01-06 14:40:00 2023-01-06 14:40:00 Outpatient CATARINA GR DENA [id number] [facility] 2022-12-17 10:30:00 2022-12-17 10:30:00 Outpatient LAB90 DENA COSTELLO [id number] [facility] 2022-12-17 09:30:00 2022-12-17 09:30:00 Outpatient NASIM PEREZ DENA [id number] [facility] 2022-12-08 09:30:00 2022-12-08 09:30:00 Outpatient RASHMILISE Mayberry DENA COSTELLO [id number] [facility] 2022-12-02 08:00:00 2022-12-02 08:00:00 Outpatient LAB90 DENA JAYSEY [id number] [facility] 2022-12-01 00:00:00 2022-12-01 00:00:00 Orders Only Doctor Unassigned, [place] [facility] 1.2.840.114 350.1.13.10 4.2.7.2.686 [id number] [facility] 2022-11-26 00:00:00 2022-11-26 00:00:00 Outpatient NASIM PEREZ DENA [id number] [facility] 2022-11-18 00:00:00 2022-11-18 00:00:00 Telephone Zeeshan Alvarez [facility] 1.2.840.114 350.1.13.10 4.2.7.2.686 [id number] [facility] 2022-11-17 08:30:00 2022-11-17 08:30:00 Outpatient NASIM PEREZ DENA [id number] [facility] 2022-11-17 00:00:00 2022-11-17 00:00:00 Orders Only Doctor Unassigned, [place] [facility] 1.2840.114 350.1.13.10 4.2.7.2.686 [id number] [facility] 2022-11-15 16:30:00 2022-11-15 16:30:00 Outpatient AYDEE MIX DENA DENA [id number] [facility] 2022-09-11 00:00:00 2022-09-11 00:00:00 Refill Zeeshan Alvarez [facility] 1..840.114 350.1.13.10 4.2.7.2.686 [id number] [facility] 2022-09-08 09:00:00 2022-09-08 09:00:00 Outpatient R ZEESHAN ALVAREZ [facility] [id number] [facility] 2022-06-18 09:43:00 2022-06-18 11:00:00 Emergency X ELENA WALKER [facility] ERT [id number] [facility] 2022-06-18 09:43:00 2022-06-18 11:00:00 Emergency Elena Walker [facility] 1.284.114 350.1.13.10 4.2.7.2.686 [id number] [facility] 2022-04-19 00:00:00 2022-04-19 00:00:00 Letter (Out) Zeeshan Alvarez [facility] 1.2.840.114 350.1.13.10 4.2.7.2.686 [id number] [facility] 2022-04-15 00:00:00 2022-04-15 00:00:00 Telephone Zeeshan Alvarez [facility] 1.2.840.114 350.1.13.10 4.2.7.2.686 [id number] [facility] 2022-03-19 00:00:00 2022-03-19 00:00:00 Orders Only Doctor Unassigned, [place] [facility] 1.840.114 350.1.13.10 4.2.7.2.686 [id number] [facility] 2022-03-19 00:00:00 2022-03-19 00:00:00 Patient Secure Msg Doctor Unassigned, [place] [facility] 1.840.114 350.1.13.10 4.2.7.2.686 [id number] [facility] 2022-03-10 08:00:00 2022-03-10 23:59:00 Outpatient ZEESHAN ZUNIGA [facility] [id number] [facility] 2022-03-10 08:00:00 2022-03-10 08:00:00 Outpatient R ZEESHAN ALVAREZ [facility] [id number] [facility] 2022-03-08 08:30:00 2022-03-08 09:13:54 Outpatient R ZEESHAN ALVAREZ [facility] [id number] [facility] 2022-03-08 08:30:00 2022-03-08 09:13:54 Office Visit Zeeshan Alvarez [facility] 1.840.114 350.1.13.10 4.2.7.2.686 [id number] [facility] 2022-03-08 08:30:00 2022-03-08 08:30:00 Outpatient R ZEESHAN ALVAREZ [facility] [id number] [facility] 2022-02-19 08:00:00 2022-02-19 08:30:14 Outpatient SABRINA ATKINSON [facility] [id number] [facility] 2022-02-19 08:00:00 2022-02-19 08:30:14 [facility] Gianni[facility] 1.84.114 350.1.13.10 4.2.7.2.686 [id number] [facility] 2022-02-19 00:00:00 2022-02-19 00:00:00 Orders Only Doctor Unassigned, [place] [facility] 1.114 350.1.13.10 4.2.7.2.686 [id number] [facility] 2022-02-13 17:12:00 2022-02-13 20:28:00 Emergency X ANUPAMA RUBIO [facility] [id number] [facility] 2022-02-13 17:12:00 2022-02-13 20:28:00 Emergency Anupama Rubio [facility] 1.114 350.1.13.10 4.2.7.2.686 [id number] [facility] 2022-02-13 00:00:00 2022-02-13 00:00:00 Orders Only Doctor Unassigned, [place] [facility] 1.114 350.1.13.10 4.2.7.2.686 [id number] [facility] 2022-01-28 09:30:00 2022-01-28 09:30:00 Outpatient R MITCHELL KWON [facility] [id number] [facility] 2022-01-28 09:30:00 2022-01-28 09:30:00 Imm/Inj Visit Vaccine, [facility] Mitchell Kwon [facility] 1.84.114 350.1.13.10 4.2.7.2.686 [id number] [facility] 2022-01-13 09:00:00 2022-01-13 09:00:00 Outpatient R ALVAREZPARISHMEJIA [facility] [id number] [facility] 2021-12-09 15:00:00 2021-12-09 15:00:00 Outpatient R ZEESHAN ALVAREZ [facility] [id number] [facility] 2021-12-03 00:00:00 2021-12-03 00:00:00 Refill Zeeshan AlvarezHJerrod [facility] 1.2.840.114 350.1.13.10 4.2.7.2.686 [id number] [facility] 2021-06-19 00:00:00 2021-06-19 00:00:00 Refill Zeeshan AlvarezHJerrod [facility] 1.2.840.114 350.1.13.10 4.2.7.2.686 [id number] [facility] 2021-05-28 11:30:00 2021-05-28 12:42:41 Outpatient R ROBYN WOOD [facility] [facility] [id number] [facility] 2021-05-28 11:23:12 2021-05-28 12:42:41 Office Visit Robyn Wood [facility] 1.2.840.114 350.1.13.10 4.2.7.2.686 [id number] [facility] 2021-05-14 07:57:23 2021-05-14 09:24:24 Office Visit Robyn Wood Rm, Adc Surg Spec Procedure [facility] 1.2.840.114 350.1.13.10 4.2.7.2.686 [id number] [facility] 2021-05-14 08:00:00 2021-05-14 08:00:00 Outpatient R ROBYN WOOD [facility] [id number] [facility] 2021-05-14 00:00:00 2021-05-14 00:00:00 Orders Only Doctor Unassigned, [place] [facility] 1.2.840.114 350.1.13.10 4.2.7.2.686 [id number] [facility] 2021-05-13 08:50:00 2021-05-13 08:50:00 Outpatient MITCHELL REDMAN [facility] [id number] [facility] 2021-05-13 08:34:45 2021-05-13 08:34:55 Imm/Inj Visit Nurse, Jeny Pob Immunizatio Mitchell Miller [facility] 1..840.114 350.1.13.10 4.2.7.2.686 [id number] [facility] 2021-05-07 09:55:46 2021-05-07 10:36:09 Office Visit Robyn Wood [facility] Building 1..840.114 350.1.13.10 4.2.7.2.686 [id number] [facility] 2021-05-07 10:00:00 2021-05-07 10:00:00 Outpatient Jovany WOOD ROBYN [facility] [id number] [facility] 2021-04-17 09:46:11 2021-04-17 10:40:26 Office Visit Antonia Zimmerman [facility] Building 1..840.114 350.1.13.10 4.2.7.2.686 [id number] [facility] 2021-04-17 10:00:00 2021-04-17 10:00:00 Outpatient ANTONIA VELOZ [facility] [id number] [facility] 2021-01-27 10:00:00 2021-01-27 10:00:00 Outpatient R ROGE AGUILERA [facility] [id number] [facility] 2021-01-20 00:00:00 2021-01-20 00:00:00 Telephone Roge Aguilera [facility] 1.840.114 350.1.13.10 4.2.7.2.686 [id number] [facility] 2021-01-08 09:30:54 2021-01-08 10:02:32 Office Visit Zeeshan Alvarez [facility] Building 1.840.114 350.1.13.10 4.2.7.2.686 [id number] [facility] 2021-01-08 09:30:00 2021-01-08 09:30:00 Outpatient R ZEESHAN ALVAREZ [facility] [id number] [facility] 2020-09-03 08:00:00 2020-09-03 08:00:00 Outpatient R KOSTA SIMS [facility] [id number] [facility] 2020-08-21 15:50:41 2020-08-21 16:48:51 Office [facility] Office Building One .84.114 350.1.13.10 4.2.7.2.686 [id number] [facility] 2020-08-21 16:14:06 2020-08-21 16:34:06 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 Visit Lab, Adc Fam Pob I Dhara [facility] Office Building One .84.114 350.1.13.10 4.2.7.2.686 [id number] [facility] 2020-08-21 16:00:00 2020-08-21 16:00:00 Outpatient Jovany ROMEROCHRISTINE [facility] [id number] [facility] 2020-08-13 07:50:00 2020-08-13 07:50:00 Outpatient Jovany DOYLEBROOKLYNS [facility] [id number] [facility] 2020-08-01 00:00:00 2020-08-01 00:00:00 Patient Outreach DoyelMitchell [facility] 1.114 350.1.13.10 4.2.7.2.686 [id number] [facility] 2020-07-28 12:49:11 2020-07-28 13:40:06 Office Visit Roge Aguilera [facility] 1..114 350.1.13.10 4.2.7.2.686 [id number] [facility] 2020-07-28 13:00:00 2020-07-28 13:00:00 Outpatient Jovany AGUILERA [facility] [id number] [facility] 2020-07-22 07:43:14 2020-07-22 07:58:14 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 Visit Pob, [facility] 1..840.114 350.1.13.10 4.2.7.2.686 [id number] [facility] 2020-07-22 07:30:00 2020-07-22 07:30:00 Outpatient Jovany AGUILERA [facility] [id number] [facility] 2020-07-15 07:56:49 2020-07-15 08:26:49 Nurse Visit Visit, Adc Nurse Zeeshan Alvarez [facility] 1.84.114 350.1.13.10 4.2.7.2.686 [id number] [facility] 2020-07-15 08:00:00 2020-07-15 08:00:00 Outpatient ZEESHAN ZUNIGA [facility] [id number] [facility] 2020-07-15 00:00:00 2020-07-15 00:00:00 [facility] 1.114 350.1.13.10 4.2.7.2.686 [id number] [facility] 2020-07-10 09:53:11 2020-07-10 10:47:31 Office Visit Zeeshan Alvarez [facility] Building 1. 350.1.13.10 4.2.7.2.686 [id number] [facility] 2020-07-10 10:00:00 2020-07-10 10:00:00 Outpatient Jovany ALVAREZ ZEESHAN [facility] [id number] [facility] 2020-07-10 00:00:00 2020-07-10 00:00:00 Orders Only Doctor Unassigned, [place] [facility] 1.114 350.1.13.10 4.2.7.2.686 [id number] [facility] 2020-02-04 13:17:33 2020-02-04 14:14:27 [facility] 1.114 350.1.13.10 4.2.7.2.686 [id number] [facility] 2020-02-04 13:30:00 2020-02-04 13:30:00 Outpatient Jovany AGUILERA [facility] [id number] [facility] 2020-02-04 07:58:43 2020-02-04 08:13:43 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 Visit Pob, Adc [facility] 1.114 350.1.13.10 4.2.7.2.686 [id number] [facility] 2020-01-28 13:30:00 2020-01-28 13:30:00 Outpatient R ROGE AGUILERA [facility] [id number] [facility] 2020-01-28 00:00:00 2020-01-28 00:00:00 [facility] 1.2840.114 350.1.13.10 4.2.7.2.686 [id number] [facility] 2020-01-28 00:00:00 2020-01-28 00:00:00 Patient Secure Msg [facility] 1.2.114 350.1.13.10 4.2.7.2.686 [id number] [facility] 2020-01-22 00:00:00 2020-01-22 00:00:00 Telephone Zeeshan Alvarez [facility] Office Building 1.284.114 350.1.13.10 4.2.7.2.686 [id number] [facility] 2020-01-08 07:34:43 2020-01-08 07:49:43 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 Visit Pob, Adc Lab Main Zeeshan Alvarez [facility] Building 1.284.114 350.1.13.10 4.2.7.2.686 [id number] [facility] 2020-01-08 07:45:00 2020-01-08 07:45:00 Outpatient R ZEESHAN ALVAREZ [facility] [id number] [facility] 2020-01-07 10:58:45 2020-01-07 11:35:35 Office Visit Zeeshan Alvarez [facility] Building 1.284.114 350.1.13.10 4.2.7.2.686 [id number] [facility] 2020-01-07 11:00:00 2020-01-07 11:00:00 Outpatient R ZEESHAN ALVAREZ [facility] [id number] [facility] 2020-01-01 13:12:43 2020-01-01 17:26:00 Emergency X Guilherme HAYES [facility] ERT [id number] [facility] 2019-11-13 08:00:00 2019-11-13 08:00:00 Outpatient R ERASMOANTONIA [facility] [id number] [facility] 2019-11-13 06:59:11 2019-11-13 07:14:11 Telemedici ne [place] [facility] Building 1..840.114 350.1.13.10 4.2.7.2.686 [id number] [facility] 2019-10-09 00:00:00 2019-10-09 00:00:00 Telephone Zeeshan AlvarezHJerrod [facility] 1..840.114 350.1.13.10 4.2.7.2.686 [id number] [facility] 2019-09-25 00:00:00 2019-09-25 00:00:00 Orders Only Doctor Unassigned, [place] [facility] 1.84.114 350.1.13.10 4.2.7.2.686 [id number] [facility] 2019-09-24 14:00:11 2019-09-24 14:37:53 Nurse Visit Visit, Adc Nurse Zeeshan AlvarezHJerrod [facility] 1.2.840.114 350.1.13.10 4.2.7.2.686 [id number] [facility] 2019-09-24 14:00:00 2019-09-24 14:00:00 Outpatient R [facility] [id number] [facility] 2019-09-07 10:00:00 2019-09-07 10:35:13 Outpatient R ZEESHAN ALVAREZ [facility] [id number] [facility] 2019-09-07 09:40:50 2019-09-07 10:35:13 [facility] 1.0.114 350.1.13.10 4.2.7.2.686 [id number] [facility] 2019-09-06 09:18:49 2019-09-06 15:20:37 Office Visit Kushal Diaz [facility] 1..114 350.1.13.10 4.2.7.2.686 [id number] [facility] 2019-08-31 08:49:00 2019-08-31 23:59:00 Hospital Encounter Danielito Rehman [facility] 1..114 350.1.13.10 4.2.7.2.686 [id number] [facility] 2019-08-31 08:48:22 2019-08-31 08:48:00 Outpatient R DANIELITO REHMAN [facility] [id number] [facility] 2019-08-31 08:48:00 2019-08-31 08:48:00 Hospital Encounter [facility] 1..114 350.1.13.10 4.2.7.2.686 [id number] [facility] 2019-08-31 00:00:00 2019-08-31 00:00:00 Orders Only Doctor Unassigned, [place] [facility] 1.2.114 350.1.13.10 4.2.7.2.686 [id number] [facility] 2019-08-29 00:00:00 2019-08-29 00:00:00 Telephone [facility] 1.0.114 350.1.13.10 4.2.7.2.686 [id number] [facility] 2019-08-23 09:50:37 2019-08-23 13:42:27 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 Kushal Diaz [facility] 1.840.114 350.1.13.10 4.2.7.2.686 [id number] [facility] 2019-08-23 09:16:55 2019-08-23 13:04:56 Office Visit Kushal Diaz [facility] 1.0.114 350.1.13.10 4.2.7.2.686 [id number] [facility] 2019-08-23 09:30:00 2019-08-23 09:50:20 Outpatient R KUSHAL DIAZ [facility] [id number] [facility] 2019-08-16 00:00:00 2019-08-16 00:00:00 Transition of Care [facility] 1.0.114 350.1.13.10 4.2.7.2.686 [id number] [facility] 2019-08-16 00:00:00 2019-08-16 00:00:00 Telephone Antonia Zimmerman [facility] Office Building One 1.0.114 350.1.13.10 4.2.7.2.686 [id number] [facility] 2019-08-16 00:00:00 2019-08-16 00:00:00 Telephone Antonia Zimmerman [facility] Office Building One 1.0.114 350.1.13.10 4.2.7.2.686 [id number] [facility] 2019-08-14 11:49:00 2019-08-15 17:31:00 Hospital Encounter Steven France [facility] 1.20.114 350.1.13.10 4.2.7.2.686 [id number] [facility] 2019-08-14 11:49:00 2019-08-15 17:31:00 Outpatient R STEVEN [facility] [id number] [facility] 2019-08-14 09:10:56 2019-08-14 10:46:17 Nurse Visit Visit, Adc Nurse Antonia Zimmerman [facility] Building 1.284.114 350.1.13.10 4.2.7.2.686 [id number] [facility] 2019-08-14 08:15:18 2019-08-14 08:57:42 Office Visit Antonia Zimmerman [facility] Office Building One 1..114 350.1.13.10 4.2.7.2.686 [id number] [facility] 2019-08-10 13:20:49 2019-08-10 14:07:23 Laboratory Only Tech, Adc Cardio Fac 1, Adc Cardio Fac Room Minh [facility] Building 1.284.114 350.1.13.10 4.2.7.2.686 [id number] [facility] 2019-08-10 13:00:00 2019-08-10 14:07:23 Outpatient R MINH [facility] [id number] [facility] 2019-08-08 14:58:59 2019-08-08 15:54:46 Nurse Visit Visit, Adc Nurse Zeeshan Alvarez [facility] Building 1.284.114 350.1.13.10 4.2.7.2.686 [id number] [facility] 2019-08-07 09:30:00 2019-08-07 10:30:52 Outpatient R ZEESHAN ALVAREZ [facility] [id number] [facility] 2019-08-07 09:27:33 2019-08-07 10:30:52 Office Visit Zeeshan Alvarez [facility] 1.2.840.114 350.1.13.10 4.2.7.2.686 [id number] [facility] 2019-07-20 08:42:07 2019-07-20 23:59:00 Outpatient R PHIL MA [facility] [id number] [facility] 2019-07-02 14:04:37 2019-07-02 14:59:31 Office Visit Roge Aguilera [facility] 1.2.840.114 350.1.13.10 4.2.7.2.686 [id number] [facility] Results Test Description Test Time Test Comments Results Result Co mments Source [id number] 22:34:17* Test Item Value Reference Range Interpretation Comme nts NT-proBNP (test code = 83724-4) 100 pg/mL <=125 Lab Interpretation (test cod e = 38896-8) Normal [facility]OL[facility] PAN[facility] (69026)2024-08-07 22:25:14* Test Item Value Reference Range Interpretation Comme nts NA (test code = 5805574847) 141 mmol/L 135-145 K (test code = 4653782777) 3.5 mmol/L 3.5-5.0 CL (test code = 6183407911) 108 mmol/L 98-108 CO2 TOTAL (test code = 3616802657) 23 mmol/L 23-31 AGAP (test code = 8249584276) 10 2-16 BUN (test code = 3073077947) 16 mg/dL 7-23 GLUCOSE (test code = 1234529240) 118 mg/dL 70-110 H CREATININE (test code = 2160-0) 1.02 mg/dL 0.60-1.25 TOTAL BILI (test code = 6011290338) 1.4 mg/dL 0.1-1.1 H CALCIUM (test code = 3508589837) 10.0 mg/dL 8.6-10.6 T PROTEIN (test code = 1419627720) 8.0 g/dL 6.3-8.2 ALBUMIN (test code = 2609543876) 4.8 g/dL 3.5-5.0 ALK PHOS (test code = 1551157865) 67 U/L 34-122 ALTv (test code = 1742-6) 21 U/L 5-50 AST(SGOT) (test code = 8270444882) 32 U/L 13-40 eGFR (test code = 97062-0) 74.3 mL/min/1.73m2 CKD-EPI eGFR (2020). Assuming creatinine has been stable day-to-day for at least three months, the eGFR indicates Category G2 (60 - 89 mL/min/1.73 m2) Lab Interpretation (test code = 53990-9) Abnormal [facility] WITH [id number] 21:57:06* Test Item Value Reference Range Interpretation Comme nts WBC (test code = 6690-2) 5.85 4.20-10.70 RBC (test code = 789-8) 5.19 4.26-5.52 HGB (test code = 718-7) 15.5 g/dL 12.2-16.4 HCT (test code = 4544-3) 45.3 % 38.4-49.3 MCV (test code = 787-2) 87.3 fL 81.7-95.6 MCH (test code = 785-6) 29.9 pg 26.1-32.7 MCHC (test code = 786-4) 34.2 g/dL 31.2-35.0 RDW-SD (test code = 76323-6) 37.4 fL 38.5-51.6 L RDW-CV (test code = 788-0) 11.6 % 12.1-15.4 L PLT (test code = 777-3) 197 150-328 MPV (test code = 47252-7) 11.3 fL 9.8-13.0 NRBC/100 WBC (test code = 1183655085) 0.0 0.0-10.0 NRBC x10^3 (test code = 6223604686) See_Comment [Automated messa ge] The system which generated this result transmitted reference range: 10*3/?L. The reference range was not used to interpret this result as normal/abnormal. GRAN MAT (NEUT) % (test code = 770-8) 62.2 % IMM GRAN % (test code = 6054209728) 0.20 % LYMPH % (test code = 736-9) 25.8 % MONO % (test code = 5905-5) 9.9 % EOS % (test code = 713-8) 1.0 % BASO % (test code = 706-2) 0.9 % GRAN MAT x10^3(ANC) (test code = 0659974073) 3.64 10*3/uL 1.99-6.95 IMM GRAN x10^3 (test code = 7691547036) 0.00-0.06 LYMPH x10^3 (test code = 731-0) 1.51 10*3/uL 1.09-3.23 MONO x10^3 (test code = 742-7) 0.58 10*3/uL 0.36-1.02 EOS x10^3 (test code = 711-2) 0.06 10*3/uL 0.06-0.53 BASO x10^3 (test code = 704-7) 0.05 10*3/uL 0.01-0.09 Lab Interpretation (test code = 26138-5) [facility]normal [facility] [id number] 21:24:44XR CHEST 1 08/07/2024 3:00 PM HISTORY: hypertension . COMPARISON: Chest radiograph dated 02/13/2023. FINDINGS: Aortic knob calcification is seen. Cardiomediastinal silhouette isotherwise within normal limits. No focal lung opacity, sizable pleural effusion or pneumothorax. No acute osseous abnormality.[facility]2024-[facility]-24 14:00:31* Test Item Value Reference Range Interpretation Comme nts QuantaFlo left side (test code = 58885-7V) 1.40-0.90 L QuantaFlo right side (test code = 40271-2V) 1.40-0.90 Exercise Modality: At RestNormal - 1.40 - 1.00Borderline - 0.99 - 0.90Mild - 0.89 - 0.60Moderate - 0.59 - 0.30Severe - 0.29 - 0.00 Lab Interpretation (test code = 07967-6) Abnormal [facility] - External Notes Date/Time Note Provider Source 2024-11-16 08:51:12 Chief Complaint Patient presents with Blood Pressure 6 week follow up [facility] 2024-10-01 08:19:41 Chief Complaint Patient presents with Blood Pressure Patient is following up on his BP Anand Hawk [place] [facility] [place] 2024-09-20 10:53:42 Chief Complaint Patient presents with Blood Pressure Patient states blood pressure has been elevated Anand Hawk MA [facility] Shraddha [facility] 2024-08-10 15:58:59 Chief Complaint Patient presents with OTHER ER F/U for blood pressure Anand Hawk MA [facility] 2024-08-07 17:35:00 Written/verbal /dc instructions, out of er no distress S Solano RN [facility] 2024-08-07 14:53:44 High blood pressure for the past 2 days. Patient denies headache, nausea/vomiting, dizziness, chest pain. Patient reports he is a little anxious. HX: HTN. [facility] Casandra Junior RN [facility] 2023-03-18 07:52:47 Formatting of this n ote is different from the original. Chief Complaint Patient presents with Follow-up 3 month follow up on cholesterol Hilary Benson MA II [facility]
[2025-05-09 06:51] LABS: Absolute Lymphocytes (CBC) 1.8 K/uL (0.7-4.9); Hematocrit 43.9 % (39.6-49.0); Hemoglobin 15.0 g/dL (13.6-17.9); MCH 29.3 pg (27.0-35.0); MCHC 34.0 g/dL (32.0-36.0); MCV 86.0 fL (80-100); MPV 9.1 fL (7.6-11.3); Nucleated RBC Absolute Count 0.0 (0-0); Nucleated Red Blood Cells % 0.1 % (0-0); RBC Red Blood Cell Count 5.11 M/uL (4.33-5.43); White Blood Count 4.60 thou/uL (4.3-10.9)
--- NOTE | 2025-05-09 07:04 | RAD REPORT ---
Procedure: Chest Single View HISTORY: MALAISE COMPARISON: none FINDINGS: The lungs appear clear of acute infiltrate. No significant pleural effusion noted. The heart is normal size. IMPRESSION: No acute abnormality is displayed.
[2025-05-09 07:08] LABS: Anion Gap 10.5 mEq/L (5.0-15.0); BUN Blood Urea Nitrogen 13.0 mg/dL (7-18); Glucose Level 88.0 mg/dL (74-106); Lipase 55.0 U/L (13-75); Magnesium 2.1 mg/dL (1.6-2.4); NT PRO-BNP 116.0 pg/mL (<450); Potassium 3.5 mEq/L (3.5-5.1); Troponin High Sensitivity 4.9 pg/mL (<58.9)
[2025-05-09] MEDS ORDERED: NA CHLORIDE 0.9% 1,000 ML ONE (07:26)
[2025-05-09] MEDS ORDERED: CEFTRIAXONE 1000 MG/VIAL ONE (07:26)
[2025-05-09 07:36] LABS: Sqamous Epithelial <5 /HPF (None Seen); Urine Culture Reflex Order NOT NEEDED; Urine Microscopic Reflex YN ORDER UMIC
[2025-05-09] MEDS ORDERED: TAMSULOSIN 0.4 MG SR CAP ONE (07:56)
--- NOTE | 2025-05-09 08:18 | RAD REPORT ---
EXAMINATION: Stone Protocol CLINICAL INDICATION: Abdominal pain TECHNIQUE: CT abdomen and pelvis was performed, without IV contrast, as per department protocol. Oral contrast not given. Axial, sagittal and coronal reconstructions were obtained. One or more of the following dose reduction techniques were used: Automated exposure control, adjustment of the mA and k V according to the patient size, and iterative reconstruction. Unless otherwise specified, incidental findings do not require dedicated imaging follow-up. COMPARISON: No prior exam. FINDINGS: The lack of intravenous and oral contrast limits the sensitivity of this exam for evaluation of solid visceral organs, vascular structures, and bowel Mild chronic appearing right lung opacities. A renal calculus not seen. No ureteral calculus. A bladder calculus not noted. No hydronephrosis 1.7 cm low-density mass right kidney nonspecific without IV contrast but probably a cyst. Small hepatic cyst. The spleen, pancreas and adrenals grossly normal. Normal appendix. Marked prostatic enlargement. Large amount of stool throughout the colon. No evidence of diverticulitis. Small sclerotic foci within the right and left iliac bones IMPRESSION: Negative for a genitourinary calculus Large amount of stool throughout the colon. Marked prostatic enlargement Small sclerotic foci within the right and left iliac bones are nonspecific. Follow-up x-ray of the pe lvis in 3 months recommended for reevaluation
[2025-05-09] MEDS ORDERED: CIPROFLOXACIN HCL 500 MG TAB ONE (08:22)
--- NOTE | 2025-05-09 08:29 | EDPHYS ---
Physician Documentation [facility] Name: Ortiz Tapia III Age: 79 yrs Sex: Male : 1945 Arrival Date: 05/09/2025 Time: 05:57 Bed 8 Private MD: ED Physician Quinn Velasco HPI: 05/09 06:52 This 79 yrs old Black Male presents to ER via Ambulatory with complaints of Urinary tt7 Frequency, lightheadedness. 06:52 Patient reports several days of urinary frequency, small amount of burning when he tt7 begins urinating, also has been feeling lightheaded throughout the day, yesterday states he felt steady and was climbing up and down a ladder doing work, denies any chest pain or shortness of breath, denies abdominal pain or nausea/vomiting. Past medical history includes hypertension. Historical: - Allergies: 06:22 No Known Allergies; nh2 - Home Meds: 06:22 Unable to obtain [Active]; nh2 - PMHx: 06:22 Hypertensive disorder; nh2 - PSHx: 06:22 Cholecystectomy; nh2 - Immunization history:: Adult Immunizations up to date. - Infectious Disease History:: Denies. - Social history:: Smoking status: Patient denies any tobacco usage or history of. Patient/guardian denies using alcohol, street drugs. ROS: 06:53 Constitutional: negative for fever. Cardiovascular: negative for chest pain. tt7 Respiratory: negative for shortness of breath. Abdomen/GI: negative for abdominal pain, nausea, vomiting, diarrhea. MS/Extremity: negative for injury and deformity. Skin: negative for rash. Neuro: negative for focal weakness. Exam: 06:53 Constitutional: vital signs reviewed, well appearing. Head/Face: normocephalic, tt7 atraumatic. Eyes: no conjunctival injection, anicteric sclerae. ENT: mucus membranes moist. Neck: trachea midline, no JVD, no meningismus. Chest/axilla: normal chest wall appearance and motion, nontender, no crepitus. Cardiovascular: regular rate and rhythm, no murmurs, no rubs, no lower extremity edema. Respiratory: normal respiratory effort, no accessory muscle use, lungs CTAB. Abdomen/GI: soft, nondistended, nontender, no guarding or rebound, negative Gamez's sign, no McBurney point tenderness. Back: normal ROM. Skin: warm, dry, intact, normal turgor, normal color, no rash. MS/ Extremity: normal ROM of extremities, no gross deformities. Neuro: alert and oriented with appropriate mental status, normal speech, follows commands, no focal neurologic deficits. Psych: appropriate mood and affect. 08:35 ECG was reviewed by the Attending Physician. elvira Vital Signs: 06:18 BP 159 / 80; Pulse 95; Resp 18; Temp 98.1; Pulse Ox 98% ; Weight 77.11 kg; Height 6 ft. nh2 0 in. ; Pain 0/10; 07:00 BP 150 / 81; Pulse 76; Resp 18; Pulse Ox 98% ; ar8 07:30 BP 144 / 73; Pulse 68; Resp 16 S; Pulse Ox 99% on R/A; Pain 0/10; ar8 08:30 BP 163 / 79; Pulse 87; Resp 16; Pulse Ox 98% on R/A; Pain 0/10; ar8 06:18 Body Mass Index 23.06 (77.11 kg, 182.88 cm) nh2 06:18 Pain Scale: Adult nh2 07:30 Pain Scale: Adult ar8 08:30 Pain Scale: Adult ar8 [place] Coma Score: 06:27 Eye Response: spontaneous(4). Motor Response: obeys commands(6). Verbal Response: nh2 oriented(5). Total: 15. MDM: 06:11 Medical Screening Exam initiated tt7 06:53 Differential diagnosis: cardiac arrhythmia, generalized weakness, near-syncope, tt7 vertigo, Hyponatremia, hypokalemia, anemia, ACS, hyperglycemia. Data reviewed: vital signs, nurses notes, lab test result(s), EKG, radiologic studies. ED course: Vital signs are stable, physical exam reassuring, standard cardiac workup initiated, I independently interpreted the patient's EKG performed on 05/09/2025 at 0619. On my interpretation, EKG demonstrates normal sinus rhythm, ventricular rate 90 bpm, left anterior fascicular block, normal QRS interval, normal ST segments, no STEMI. 06:55 ED course: Patient care signed out to Dr. Velasco at shift change at 0700 pending tt7 results of laboratory studies and chest x-ray imaging. 05/09 06:35 Order name: Basic Metabolic Panel; Complete Time: 07:17 tt7 05/09 06:35 Order name: CBC with Diff; Complete Time: 07:07 05/09 06:35 Order name: D-Dimer; Complete Time: 07:07 05/09 06:35 Order name: Magnesium; Complete Time: 07:17 05/09 06:35 Order name: NT PRO-BNP; Complete Time: 07:17 tt05/09 06:35 Order name: Troponin HS; Complete Time: 07:17 tt05/09 06:35 Order name: Lipase; Complete Time: 07:17 tt05/09 06:55 Order name: UA Rfx Adrian Cult if indicated; Complete Time: 07:38 tt7 05/09 06:35 Order name: XRAY Chest (1 view); Complete Time: 07:07 05/09 07:54 Order name: CT Stone Protocol; Complete Time: 08:25 elvira 05/09 06:35 Order name: Cardiac monitoring; Complete Time: 06:35 05/09 06:35 Order name: EKG - Nurse/Tech; Complete Time: 06:35 05/09 06:35 Order name: IV Saline Lock; Complete Time: 06:35 05/09 06:35 Order name: Labs collected and sent; Complete Time: 06:35 tt05/09 06:35 Order name: O2 Per Protocol; Complete Time: 06:35 05/09 06:35 Order name: O2 Sat Monitoring; Complete Time: 06:35 tt7 EC:35 Rate is 90 beats/min. Rhythm is regular. QRS [place] is Normal. ID interval is normal. QRS elvira interval is normal. QT interval is normal. No Q waves. T waves are Normal. No ST changes noted. Clinical impression: NSR w/ Non-specific ST/T Changes and No evidence of ischemia. Interpreted by me. Reviewed by me. Administered Medications: 07:31 Drug: NS 0.9% IV 1000 ml IV at 1000 ml once; to be given as a bolus over 60 minutes ar8 Route: IV; Rate: 1000 ml; Site: left antecubital; 08:45 Follow up: Response: No adverse reaction; IV Status: Completed infusion; IV Intake: ar8 1000ml 08:10 Drug: Rocephin IV 1 grams IV at per protocol once; Given slow IV push per pharmacy ar8 instructions Route: IV; Rate: per protocol; Site: left antecubital; 08:15 Follow up: Response: No adverse reaction; IV Status: Completed infusion; IV Intake: [id number] 08:18 Drug: Flomax PO 0.4 mg PO once Route: PO; ar8 08:53 Follow up: Response: No adverse reaction ar8 08:24 Drug: Ciprofloxacin PO 500 mg PO once Route: PO; ar8 08:53 Follow up: Response: No adverse reaction ar8 Disposition Summary: 05/09/25 08:29 Discharge Ordered Notes: Location: Home elvira Problem: new elvira Symptoms: have improved elvira Condition: Stable elvira Diagnosis - UTI/ Urinary tract infection, site not specified elvira - Disorder of prostate, unspecified elvira - Dizziness and giddiness elvira - Constipation elvira Followup: elvira - With: Private Physician - When: 2 - 3 days - Reason: Recheck today's complaints, Continuance of care, Re-evaluation by your physician Followup: elvira - With: Dg Simon MD - When: 2 - 3 days - Reason: Recheck today's complaints, Re-evaluation by your physician Discharge Instructions: - Discharge Summary Sheet elvira - Constipation, Adult elvira - Dizziness elvira - Dysuria elvira - Urinary Tract Infection, Adult elvira - Constipation, Adult, Yvne-ol-Gizj elvira - Urinary Tract Infection, Adult, Utev-jo-Ldqi elvira - Dizziness, Kqnj-jo-Dfjy elvira Forms: - Medication Reconciliation Form elvira - Antibiotic Education elvira - Prescription Opioid Use elvira - Patient Portal Instructions [facility] - Leadership Thank You Letter [facility] Prescriptions: - Dulcolax (bisacodyl) 5 mg Oral tablet, delayed release (enteric coated) - take 2 tablet ORAL route every day at bedtime for 3 days; 6 tablet; Refills: 0, elvira Product Selection Permitted - Flomax 0.4 mg Oral capsule - take 1 capsule ORAL route daily; 20 capsule; Refills: 0, Product Selection elvira Permitted - Cipro 250 mg Oral tablet - take 1 tablet ORAL route every 12 hours; 20 tablet; Refills: 0, Product [facility] Selection Permitted Signatures: Dispatcher [employer] Quinn Cobian MD MD cha Hernandez Jr, Noel RN RN nh2 Star Roque RN RN ar8 Romeo Alfred DO DO tt7 Corrections: (The following items were deleted from the chart) 06:23 06:22 PSHx: None; nh2 nh2 06:35 06:35 BASIC METABOLIC PANEL+C.LAB.BRZ ordered. EDMS EDMS 06:35 06:35 CBC+H.LAB.BRZ ordered. EDMS EDMS 06:35 06:35 D-DIMER+COAG.LAB.BRZ ordered. EDMS EDMS 06:35 06:35 MAGNESIUM+C.LAB.BRZ ordered. EDMS EDMS 06:35 06:35 PROBNP+C.LAB.BRZ ordered. EDMS EDMS 06:35 06:35 Troponin High Sensitivity+C.LAB.BRZ ordered. EDMS EDMS 06:35 06:35 LIPASE+C.LAB.BRZ ordered. EDMS EDMS 06:35 06:35 Chest Single View+RAD.RAD.BRZ ordered. EDMS EDMS
--- NOTE | 2025-05-09 08:29 | ER ---
Nurse's Notes [facility] Name: Ortiz Tapia III Age: 79 yrs Sex: Male : 1945 Arrival Date: 05/09/2025 Time: 05:57 Bed 8 Private MD: Diagnosis: UTI/ Urinary tract infection, site not specified;Disorder of prostate, unspecified;Dizziness and giddiness;Constipation Presentation: 05/09 06:18 Chief complaint: Patient states: I have been feeling dizzy for about a week. I was nh2 drinking extra water cause I thought I might be dehydrated but then I started peeing a lot more. Coronavirus screen: At this time, the client does not indicate any symptoms associated with coronavirus-19. Ebola Screen: Patient negative for fever greater than or equal to 101.5 degrees Fahrenheit, and additional compatible Ebola Virus Disease symptoms Patient denies exposure to infectious person. Patient denies travel to an Ebola-affected area in the 21 days before illness onset. No symptoms or risks identified at this time. Initial Sepsis Screen: Does the patient meet any 2 criteria? No. Patient's initial sepsis screen is negative. Does the patient have a suspected source of infection? No. Patient's initial sepsis screen is negative. Risk Assessment: Do you want to hurt yourself or someone else? Patient reports no desire to harm self or others. Onset of symptoms was May 02, 2025. 06:18 Method Of Arrival: Ambulatory nh2 06:18 Acuity: FINN 3 nh2 Triage Assessment: 06:22 General: Appears in no apparent distress. comfortable, Behavior is calm, cooperative, nh2 appropriate for age. Pain: Denies pain. EENT: No deficits noted. No signs and/or symptoms were reported regarding the EENT system. Neuro: Level of Consciousness is awake, alert, obeys commands, Oriented to person, place, time, situation, Appropriate for age International Operations Manager are equal bilaterally Moves all extremities. Full function Gait is steady, Speech is normal, Facial symmetry appears normal, Pupils are PERRLA, Pupil Size: 4 mm Reports dizziness. Cardiovascular: Denies chest pain, Heart tones S1 S2 present Capillary refill < 3 seconds in bilateral fingers Patient's skin is warm and dry. Cardiovascular: Reports lightheadedness. Respiratory: Airway is patent Respiratory effort is even, unlabored, Respiratory pattern is regular, symmetrical. GI: No deficits noted. No signs and/or symptoms were reported involving the gastrointestinal system. : Reports urinary frequency, since for one week. Derm: No deficits noted. No signs and/or symptoms reported regarding the dermatologic system. Musculoskeletal: No deficits noted. No signs and/or symptoms reported regarding the musculoskeletal system. Historical: - Allergies: 06: No Known Allergies; nh2 - Home Meds: : Unable to obtain [Active]; nh2 - PMHx: : Hypertensive disorder; nh2 - PSHx: 06:22 Cholecystectomy; nh2 - Immunization history:: Adult Immunizations up to date. - Infectious Disease History:: Denies. - Social history:: Smoking status: Patient denies any tobacco usage or history of. Patient/guardian denies using alcohol, street drugs. Screenin:27 [facility] ED Fall Risk Assessment (Adult) History of falling in the last 3 months, nh2 including since admission No falls in past 3 months (0 pts) Confusion or Disorientation No (0 pts) Intoxicated or Sedated No (0 pts) Impaired Gait No (0 pts) Mobility Assist Device Used No (0 pt) Altered Elimination No (0 pt) Score/Fall Risk Level 0 - 2 = Low Risk Oriented to surroundings, Maintained a safe environment, Educated pt \T\ family on fall prevention, incl call for assistance when getting out of bed, Assessed \T\ reinforced patient's understanding of fall precautions, Hourly rounding (assess needs \T\ fall precautionary measures) done, Used ambulatory aids as needed (educated on \T\ assisted with), Used gait belt as appropriate. Abuse screen: Denies threats or abuse. Nutritional screening: No deficits noted. Tuberculosis screening: No symptoms or risk factors identified. Assessment: 06:27 Reassessment: see triage assessment. nh2 07:16 Reassessment: Patient and/or family updated on plan of care and expected duration. Pain ar8 level reassessed. Patient is alert, oriented x 3, equal unlabored respirations, skin warm/dry/pink. Patient states feeling better. Vital Signs: 06:18 BP 159 / 80; Pulse 95; Resp 18; Temp 98.1; Pulse Ox 98% ; Weight 77.11 kg; Height 6 ft. nh2 0 in. ; Pain 0/10; 07:00 BP 150 / 81; Pulse 76; Resp 18; Pulse Ox 98% ; ar8 07:30 BP 144 / 73; Pulse 68; Resp 16 S; Pulse Ox 99% on R/A; Pain 0/10; ar8 08:30 BP 163 / 79; Pulse 87; Resp 16; Pulse Ox 98% on R/A; Pain 0/10; ar8 06:18 Body Mass Index 23.06 (77.11 kg, 182.88 cm) nh2 06:18 Pain Scale: Adult nh2 07:30 Pain Scale: Adult ar8 08:30 Pain Scale: Adult ar8 Faisal Coma Score: 06:27 Eye Response: spontaneous(4). Motor Response: obeys commands(6). Verbal Response: nh2 oriented(5). Total: 15. ED Course: 06:09 Patient arrived in ED. gm2 06:11 Romeo Alfred DO is Attending Physician. tt7 06:18 Iam Collins Jr, DARIEN is Primary Nurse. nh2 06:22 Triage completed. nh2 06:26 Arm band placed on right wrist. nh2 06:26 No provider procedures requiring assistance completed. Initial lab(s) drawn, by ED nh2 staff, sent to lab. Inserted saline lock: 20 gauge in left antecubital area, using aseptic technique. Blood collected. Flushed with 10 mL NS. Patient maintains SpO2 saturation greater than 95% on room air. 06:27 Patient has correct armband on for positive identification. Bed in low position. [facility] light in reach. Side rails up X 1. Client placed on continuous cardiac and pulse oximetry monitoring. NIBP monitoring applied. medical director on. Pulse ox on. NIBP on. Door closed. Noise minimized. Warm blanket given. Pillow given. Verbal reassurance given. Head of bed elevated. 06:53 Kerri Jordan, RN is Primary Nurse. jp5 06:55 XRAY Chest (1 view) In Process Unspecified. EDMS 07:16 Urine collected: clean catch specimen, clear. ar8 07:17 Attending Physician role handed off by Romeo Alfred DO elvira 07:17 Quinn Velasco MD is Attending Physician. elvira 08:05 CT Stone Protocol In Process Unspecified. EDMS 08:27 Dg Simon MD is Referral Physician. elvira 08:56 IV discontinued, intact, bleeding controlled, No redness/swelling at site. Pressure ar8 dressing applied. Administered Medications: 07:31 Drug: NS 0.9% IV 1000 ml IV at 1000 ml once; to be given as a bolus over 60 minutes ar8 Route: IV; Rate: 1000 ml; Site: left antecubital; 08:45 Follow up: Response: No adverse reaction; IV Status: Completed infusion; IV Intake: ar8 1000ml 08:10 Drug: Rocephin IV 1 grams IV at per protocol once; Given slow IV push per pharmacy ar8 instructions Route: IV; Rate: per protocol; Site: left antecubital; 08:15 Follow up: Response: No adverse reaction; IV Status: Completed infusion; IV Intake: [id number] 08:18 Drug: Flomax PO 0.4 mg PO once Route: PO; ar8 08:53 Follow up: Response: No adverse reaction ar8 08:24 Drug: Ciprofloxacin PO 500 mg PO once Route: PO; ar8 08:53 Follow up: Response: No adverse reaction ar8 Medication: 06:27 VIS not applicable for this client. nh2 Intake: 08:15 IV: 10ml; Total: 10ml. ar8 08:45 IV: 1000ml; Total: 1010ml. ar8 Outcome: 08:29 Discharge ordered by MD. felix 08:56 Discharged to home ambulatory, ar8 08:56 Condition: stable 08:56 Discharge instructions given to patient, Instructed on discharge instructions, follow up and referral plans. medication usage, Demonstrated understanding of instructions, follow-up care, medications, Prescriptions given X 3, 08:56 Patient left the ED. ar8 Signatures: Dispatcher [employer] EDFL Quinn Velasco MD MD cha Mitchell, Ginger gm2 Kerri Jordan RN RN jp5 Iam Collins Jr, RN RN nh2 Star Roque RN RN ar8 Romeo Alfred DO DO tt7 Corrections: (The following items were deleted from the chart) 06:23 06:22 PSHx: None; nh2 nh2 06:26 06:18 Pulse 95bpm; Resp 18bpm; Pulse Ox 98%; Temp 98.1F; 77.11 kg; Height 6 ft. 0 in.; nh2 BMI: 23.0; Pain 0/10, Adult; nh2
[2025-05-09 09:19] VITALS: TEMP 98.1
[2025-05-09 09:23] VITALS: BP 163/79; O2SAT 98
== END 2025-05-09 08:56 | disposition home or self-care (01) ==
LOC: ER 05:57
DX: N39.0 Urinary tract infection, site not specified (principal); N42.9 Disorder of prostate, unspecified; R42 Dizziness and giddiness; K59.00 Constipation, unspecified; I10 Essential (primary) hypertension
CPT/HCPCS: 96361; 93005; 85025; 81001; 80048; 36415; 83735; 85379; 84484; 83690; 83880; 76377; 74176; 71045; 96374; 99285; J7030; J0696